=== PATIENT | male | born 1975 | race Caucasian/White ===

== ENCOUNTER 2017-01-09 02:21 | Inpatient (IN) | payer OTHER ==
[~2017-01-09] VITALS: Ht 177.8 cm; Wt 127.0 kg
[2017-01-09 05:22] LABS: HEMOGLOBIN 16.3 gm/dl (14.0-17.5); RED BLOOD COUNT 5.19 M/UL (4.20-5.50); WHITE BLOOD COUNT 21.6 K/UL (4.5-11.0)
[2017-01-09 05:33] LABS: BUN/CREATININE RATIO 13 (0-10)
[2017-01-09] MEDS ORDERED: NORCO 10-325 T1 EACH PO (08:26)
[2017-01-09] MEDS ORDERED: ALPRAZOLAM0.5 MG PO (08:27)
[2017-01-09] MEDS ORDERED: NEURONTIN 400400 MG PO (08:28)
[2017-01-09] MEDS ORDERED: PRILOSEC OTC20 MG PO (08:28)
[2017-01-09] MEDS ORDERED: FLEXERIL 10 MG10 MG PO (08:29)
[2017-01-09] MEDS ORDERED: ALTACE10 MG PO (08:31)
[2017-01-09] MEDS ORDERED: SYNTHROID75 MCG PO (08:31)
[2017-01-09] MEDS ORDERED: VITAMIN D50000 UNIT PO (08:31)
[2017-01-09 16:52] LABS: HEMOGLOBIN 15.2 gm/dl (14.0-17.5); RED BLOOD COUNT 4.84 M/UL (4.20-5.50); WHITE BLOOD COUNT 16.5 K/UL (4.5-11.0)
[2017-01-09 17:09] LABS: BUN/CREATININE RATIO 14 (0-10)
[2017-01-10 04:05] LABS: RED BLOOD COUNT 5.14 M/UL (4.20-5.50)
[2017-01-10 04:48] LABS: BUN/CREATININE RATIO 12 (0-10)
[2017-01-11 04:00] LABS: HEMOGLOBIN 16.8 gm/dl (14.0-17.5); RED BLOOD COUNT 5.36 M/UL (4.20-5.50)
[2017-01-12] MEDS ORDERED: ASPIRIN EC81 MG PO (09:37)
[2017-01-12] MEDS ORDERED: LIPITOR TAB 2020 MG PO (09:38)
[2017-01-12] MEDS ORDERED: PLAVIX 75 MG TA75 MG PO (09:39)
[2017-01-12] MEDS ORDERED: LOPRESSOR50 MG PO (09:40)
[2017-01-12] MEDS ORDERED: NICOTINE PATCH1 EAC1 TOP (09:41)
[2017-01-12] MEDS ORDERED: LISINOPRIL2.5 MG PO (09:45)
== END 2017-01-12 11:00 | disposition home or self-care (01) | DRG 246 ==
LOC: CCU 04:14
PROVIDERS: Internal Medicine; ADMIT Hospitalist
PROC: 027034Z Dilation of Coronary Artery, One Artery with Drug-eluting Intraluminal Device, Percutaneous Approach (ICD-10-PCS; principal; 2017-01-09)
PROC: 02713ZZ Dilation of Coronary Artery, Two Arteries, Percutaneous Approach (ICD-10-PCS; 2017-01-09)
PROC: 02C03ZZ Extirpation of Matter from Coronary Artery, One Artery, Percutaneous Approach (ICD-10-PCS; 2017-01-09)
PROC: 4A023N7 Measurement of Cardiac Sampling and Pressure, Left Heart, Percutaneous Approach (ICD-10-PCS; 2017-01-09)
DX: I21.3 ST elevation (STEMI) myocardial infarction of unspecified site (principal); I50.21 Acute systolic (congestive) heart failure; N17.9 Acute kidney failure, unspecified; I13.0 Hypertensive heart and chronic kidney disease with heart failure and stage 1 through stage 4 chronic kidney disease, or unspecified chronic kidney disease; T82.855A Stenosis of coronary artery stent, initial encounter; F17.210 Nicotine dependence, cigarettes, uncomplicated; E78.5 Hyperlipidemia, unspecified; J44.9 Chronic obstructive pulmonary disease, unspecified; I73.9 Peripheral vascular disease, unspecified; D72.829 Elevated white blood cell count, unspecified; I12.9 Hypertensive chronic kidney disease with stage 1 through stage 4 chronic kidney disease, or unspecified chronic kidney disease; N18.2 Chronic kidney disease, stage 2 (mild); E03.9 Hypothyroidism, unspecified; I25.10 Atherosclerotic heart disease of native coronary artery without angina pectoris; R00.0 Tachycardia, unspecified; Y71.8 Miscellaneous cardiovascular devices associated with adverse incidents, not elsewhere classified; Z88.0 Allergy status to penicillin; Z88.1 Allergy status to other antibiotic agents; Z91.041 Radiographic dye allergy status; Z95.5 Presence of coronary angioplasty implant and graft; Z98.62 Peripheral vascular angioplasty status; Z82.49 Family history of ischemic heart disease and other diseases of the circulatory system
CPT/HCPCS: ECHO; 36415; 71010; 80048; 80053; 80061; 82550; 82553; 83036; 84439; 84443; 84484; 85027; 85347; 85610; 85730; 93005; 93306; 94664; C1725; C1757; C1769; C1874; C1887; C1894; C9600; J0461; J0583; J1200; J1644; J1720; J1940; J2250; J2270; J2930; J3010; J7030; J7040

== ENCOUNTER → 2017-03-02 | Outpatient (CLI) | payer OTHER ==
[~2017-03-02] MED LIST: ALPRAZOLAM0.5 MG PO; ALTACE10 MG PO; ASPIRIN EC81 MG PO; FLEXERIL 10 MG10 MG PO; LIPITOR TAB 2020 MG PO; LISINOPRIL2.5 MG PO; LOPRESSOR50 MG PO; NEURONTIN 400400 MG PO; NICOTINE PATCH1 EAC1 TOP; NORCO 10-325 T1 EACH PO; PLAVIX 75 MG TA75 MG PO; PRILOSEC OTC20 MG PO; SYNTHROID75 MCG PO; VITAMIN D50000 UNIT PO
== END ==
LOC: HEART 5 02-07 08:15
DX: I25.10 Atherosclerotic heart disease of native coronary artery without angina pectoris (principal); R94.30 Abnormal result of cardiovascular function study, unspecified
CPT/HCPCS: 78452; A9502; J2785